=== PATIENT | male | born 1970 | race Caucasian/White ===

== ENCOUNTER → 2016-07-01 | Outpatient (CLI) | payer OTHER ==
--- NOTE | 2016-07-02 08:09 | PAP/PSG TECHNICIAN REPORT ---
[facility] Build And Release Manager Polysomnogram Report Study name: None Report date: 07/02/2016 Study date: 07/01/2016 Referring Physician: KANU BAZAN Name: MALINA LAWSON Interpreting Physician: Bernardo Richardson D.O. Date of : 1970 Build And Release Manager: Klarissa Lucas, PSGT. Sex: Male Age: 46 StudyType: PSG Weight: 160 lbs Height: 46 years, Height 6' 2" Neck Circum:15.5 inches BMI: 20.54 Medications: IBP 400 mg, Loratadine 10 mg, Multivitamin. Patient History 46 yr. old male presents tonight for witnessed apnea and severe snoring. Neck =15.5 inches Parameters Monitored NPSG: E1-M2, E2-M1, Fp1-M2, Fp2-M1, F3-M2, F4-M2, F4-M1, C3-M2, C4-M2, C4-M1, O1-M2, O2-M2, O2-M1, T3-M2, T4-M1, P3-M2, P4-M1, CHIN1, CHIN2, HR, EKG, Legs, PFLOW, SNOR, FLOW, CFLOW, Tidal Volume, THOR, ABDO, SpO2, PLTH, CPRESS, ETCO2 Wave, ETCO2, pH Sleep Architecture Sleep Stages Time at Lights Off 9:53:29 PM STAGES Time (min.) TST (%) Time at Lights On 5:39:29 AM Wake 85.5 -- Total Recording Time (TRT) 471.50 min. N1 49.0 13 Total Sleep Period (TSP) 426.5 min. N2 258.0 68 Total Sleep Time (TST) 380.5min. N3 26.5 7 Awake Time 86.0 min. REM 47.0 12 Wake after Sleep Onset 46.0 min. Sleep Efficiency (SE) 82 % Sleep Onset Latency (KELLY) 39.5 min. Number of Stage 1 Shifts None Awakenings 6 Stage Changes 34 Number of REM periods 2 REM 47.0 12 REM Latency 181.0 min. NREM 333.5 88 Body Position Analysis Supine Right Left Side Prone Vertical Total Sleep Time (min.) 454.3 0.0 0.0 0.00 0.0 11.7 Total Sleep Time (%) 100% 0% 0% 0 0% N/A% Total Sleep Time REM (min.) 47.0 0.0 0.0 None 0.0 0.0 Total Sleep Time NREM (min.) 333.5 0.0 0.0 None 0.0 0.0 Intermittent Wake (min.) 73.8 0.0 0.0 None 0.0 11.7 Total Sleep Period (%) 100% None None None None None Arousals Myoclonus (PLM) * Events Count Index Events Count Index Spontaneous 118 19 Events Awake (PLMW) 2 1.4 Respiratory 8 1.3 Events Asleep w/ Arousal (PLMA) 20 3.2 PLM 20 3 Events Asleep w/o Arousal (PLMS) 186 29.3 Snoring 11 2 Total Asleep 206 32.5 Total 157 25 Total 208 27 Respiratory Analysis * CA OA MA CH H RERA Total Count 0 0 0 0 40 0 40 Index 0.0 0.0 0.0 0 6.3 0 6.3 Mean Duration 0.0 0.0 0.0 0.00 30.8 0.0 30.8 Longest Duration 0.0 0.0 0.0 0.00 0.0 0.0 54.6 Respiratory Event Summary Total Supine ~Supine Right Left Prone REM NREM Apneas Count 0 0 N/A N/A N/A N/A 0 0 Index 0.0 0 N/A N/A N/A N/A 0 0 Hypopneas (4% Desat) Count 40 40 N/A N/A N/A N/A 5 35 Index 6.3 6.3 N/A N/A N/A N/A 6.4 6.3 Apneas & All Hypopneas Count 40 40 N/A N/A N/A N/A 5 35 Index 6.3 6 N/A N/A N/A N/A 6.4 6.3 Respiratory Events (Police Chief Deputy+All Hyp+RERA) Count 40 40 N/A N/A N/A N/A 5 35 Index 6.3 6 N/A N/A N/A N/A 6.4 6.3 Respiratory Related Arousal Count 8 40 N/A N/A N/A N/A 1 7 Index 1.3 1 N/A N/A N/A N/A 1 1 Snoring Analysis Supine Right Left Prone REM NREM Total Snore duration 12.1 min Snores count 332 N/A N/A N/A 49 283 332 Snore mean duration 2.2 Sec Snores index 52 N/A N/A N/A 62.6 50.9 52.4 TST with snoring (%) 3.2% Desaturation Event Summary: Minimum %SpO2 Event Count Mean/Min/Max Duration(sec.) Desaturation Index % Time In Bed > 90 43 33.6 / 9.0 / 58.8 5.6 98.4 86 - 90 0 N/A 0.0 1.6 81 - 85 0 N/A 0.0 0.0 76 - 80 0 N/A 0.0 0.0 71 - 75 0 N/A 0.0 0.0 66 - 70 0 N/A 0.0 0.0 61 - 65 0 N/A 0.0 0.0 56 - 60 0 N/A 0.0 0.0 51 - 55 0 N/A 0.0 0.0 < 50 0 N/A 0.0 0.0 Total REM NREM Awake <50% 0.0 min. 0.0 min. 0.0 min. 0.0 min. 51 - 60% 0.0 min. 0.0 min. 0.0 min. 0.0 min. 61 - 70% 0.0 min. 0.0 min. 0.0 min. 0.0 min. 71 - 80% 0.0 min. 0.0 min. 0.0 min. 0.0 min. 81 - 90% 7.5 min. 1.0 min. 5.7 min. 0.8 min. 91 - 100% 458.4 min. 46.0 min. 327.8 min. 84.6 min. Average 93 93 93 93 Minimum SpO2 87 90 87 88 Desaturation Event Index 5.5 6.4 6.8 0.0 # Desat. Events below 89% 4 N/A 4 N/A Time(%) with Saturation below 89% 0.2 0.0 0.1 0.0 Time(min.) with Saturation below 89% 0.8 0.0 0.7 0.1 Time (mins) REM (mins) NREM (mins) % of TST SpO2 Below 90% 18 2 N16 0.5 SpO2 Below 88% 3 0 0 0 Heart Rate Analysis Min (bpm) Max (bpm) Average (bpm) Awake 52 76 62 NREM 47 73 55 REM 50 73 60 Overall 47 73 55 Supplemental O2 Values Minimum O2 level: None Value Start Time End Time Build And Release Manager Comments PSG Study Mr. Lawson slept in the supine positions. No cardiac arrhythmia, PLM's noted. No bruxism noted. Snoring was noted and scored as a 2 on a scale of 1 through 5. (0=no snoring, 5=snoring loud enough to be heard through a closed door or down the [address] way) Mr. Lawson awoke to use the restroom zero times during the night. Mr. Lawson stated, I did sleep better than I do when I am in my own bed. The final report will be interpreted and signed by a sleep physician. The completed physician report will then be placed in the patient medical record. Pt. had a lot of myoclonus in the beginning, then as the night progressed he seemed to stop. He would move his legs head and mouth. Snoring was mild and he stayed the in the supine position the entire study. Therapy (cm H2O) 0 TIB (min.) 466.0 TST (min.) 380.5 Sleep Onset (min.) 39.5 REM Onset From Sleep (min.) 181.0 Sleep Efficiency % 82 Wakefulness (%) 18 Wakefulness (min.) 86.0 NREM 1 (%) 13 NREM 1 (min.) 49.0 NREM 2 (%) 68 NREM 2 (min.) 258.0 NREM 3 (%) 7 NREM 3 (min.) 26.5 REM (%) 12 REM (min.) 47.0 # Arousals 157 Arousal Index 25 # Snore 332 Snore Index 52.4 AHI 6.3 AHI Supine 6 AHI Non-Supine N/A NREM AHI 6.3 REM AHI 6.4 RDI 6.3 # Obstructive Apnea 0 # Central Apnea 0 # Mixed Apnea 0 # Hypopneas 40 RERAs 0 Total Respiratory Events 40 Time Below SpO2 89% (min.) 0.7 Mean NREM SpO2 (%) 93 Mean REM SpO2 (%) 93 Mean Sleep SpO2 (%) 93 Min NREM SpO2 (%) 87 Min REM SpO2 (%) 90 Position Supine (min.) 454.3 Position Non-supine (min.) 0.0 LM Index Sleep 32.5 LM Index NREM 32.4 LM Index REM 33.2 Mean Heart Rate (bpm) 55 Min Heart Rate (bpm) 47
--- NOTE | 2016-07-05 19:59 | POLYSOMNOGRAPH REPORT ---
REFERRING PHYSICIAN: BENI Torrez CLINICAL DATA: The patient is a 46-year-old male with a BMI of 20.54. His history is that of snoring, restless sleep, nocturnal gasping, and observed apneas. SLEEP ARCHITECTURE: The total sleep period was 426.5 minutes. The total sleep time was 380.5 minutes. The sleep efficiency was mildly reduced at 82%. Sleep onset latency was 39.5 minutes. Wake after sleep onset was 46.0 minutes. The REM latency was prolonged to 181 minutes. Sleep consisted of stage NI 13%, stage N2 68%, stage N3 7%, and stage REM 12%. AROUSAL DATA: The patient had a total of 157 arousals including 118 spontaneous arousals, 8 respiratory arousals, 20 PLM arousals, and 11 snoring arousals. The arousal index was 25. PERIODIC LIMB MOVEMENTS DATA: The patient had a total of 206 periodic limb movements of sleep for an index of 32.5. There were 20 arousals for a PLM arousal index of 3.2. ELECTROCARDIOGRAM: The patient's underlying cardiac rhythm was normal sinus. The cardiac rates ranged from 47-73 beats per minute, the average was 60 per minute. No cardiac arrhythmia was noted. RESPIRATORY DATA: The patient had a total of 40 respiratory events all of which were hypopneas. Hypopneas were scored by the 4% desaturation rolls. The apnea hypopnea index was 6.3. There were 0 apneas. The mean duration of the hypopneas was 30.8 seconds. OXIMETRY DATA: The average saturation was 93%. The minimum saturation was 87%. He had a total of only 0.8 minutes with saturations less than 89%. SUPERVISOR ENGINE REPAIR'S COMMENTS: The patient slept in the supine position. No cardiac arrhythmias noted. PLMs were noted. No bruxism noted. Snoring was noted and scored as a 2 on a scale of 1 through 5. Following the study, patient stated that he did sleep better than he does in his own bed. IMPRESSION: 1. Obstructive sleep apnea - mild. 2. Periodic limb movement disorder. COMMENTS: The patient had mild sleep apnea. All of his events were hypopneas. There was a marked increase in spontaneous arousals, this may represent some degree of underlying upper airway resistance. He was noted to be supine throughout the entire night. He had a moderate number of limb movements but with relatively few arousals. RECOMMENDATIONS: 1. Consideration is given to a trial of nasal CPAP. In light of the mild sleep apnea, this is dependent upon his clinical scenario and patient's wishes. He could be referred for a CPAP titration or he could be treated with auto CPAP. 2. An alternative treatment would be an oral appliance. 3. The patient would be advised to avoid sleeping in the supine position as typically there is more sleep disordered breathing when lying supine. MTDD
== END | disposition home or self-care (01) ==
LOC: C.NEUR 20:00 → MERGE 20:00
PROVIDERS: ATTEND Nurse Practitioner Adult Health
DX: R06.83 Snoring (principal); R06.9 Unspecified abnormalities of breathing; G47.9 Sleep disorder, unspecified

== ENCOUNTER 2017-01-28 22:07 | Emergency (ER) | payer OTHER ==
[~2017-01-28] VITALS: Ht 188 cm; Wt 68.0 kg
[2017-01-28 22:35] VITALS: TEMP 36.7; Ht 188 cm; Wt 68.0 kg
[2017-01-28 22:53] LABS: URINE APPEARANCE CLEAR (CLEAR); URINE BILIRUBIN NEG (NEG); URINE COLOR YELLOW; URINE NITRITE NEG (NEG); URINE SPECIFIC GRAVITY 1.024 (1.000-1.030); UROBILINOGEN NEG (NEG)
[2017-01-28 22:56] LABS: MANUAL MICROSCOPIC REQUIRED? NO; REVIEW REQ? NO
[2017-01-28 23:08] LABS: BASO % 0.7 %; BASO ABS # 0.05 K/uL (0-0.2); COMPLETE YES; EOS % 1.9 %; HEMATOCRIT 44.5 % (42-52); IG% 0.3 %; LYMPH % 21.4 %; LYMPH ABS # 1.46 K/uL (1.2-3.4); MEAN CELL VOLUME 89.2 fL (80-100); MEAN CORPUSCULAR HEMOGLOBIN 30.1 pg (25-34); MEAN CORPUSCULAR HGB CONC 33.7 g/dl (32-36); MEAN PLATELET VOLUME 10.4 fL (7.4-10.4); MONO % 9.3 %; NEUT % 66.4 %; PLATELET COUNT 305 K/uL (130-400); RED BLOOD COUNT 4.99 M/uL (4.7-6.1); WHITE BLOOD COUNT 6.81 K/uL (4.8-10.8)
--- NOTE | 2017-01-28 23:08 | EMERGENCY ROOM VISIT NOTE ---
History Report prepared by Rosalio: Claudia Mckeon Under the Supervision of: Dr. Marco A Calloway M.D. First contact with patient: 22:13 Stated Complaint: MH History of Present Illness The patient is a 46 year old male who presents to the Emergency Room for a mental health evaluation. The patient's called the police after he sent a text message today saying that his kids will no longer have a father. She was concerned that he might try to hurt himself. His also notes that he has had worsening poor hygiene in the past month. The patient has a history of anxiety and depression. He is not on any medications, but does follow with a therapist. He finds speaking with a therapist helpful. The patient states that he does not have any suicidal or homicidal ideation. He explains that he made that statement after his told him that she would sell his truck if he did not refinance by tomorrow. He meant that he would be unable to drive to see his kids without his truck. Source of History: patient, nursing staff Onset: earlier today Position: other (global) Quality: other (mental health evaluation) Timing: resolved Note: Pt denies suicidal ideation, homicidal ideation. Review of Systems See HPI for pertinent positives & negatives. A total of 10 systems reviewed and were otherwise negative. Past Medical & Surgical Medical Problems: (1) Anxiety (2) Depression Family History No pertinent family history stated. Social History Marital Status: Occupation Status: employed Current/Historical Medications No Active Prescriptions or Reported Meds Allergies Coded Allergies: No Known Allergies (Unverified , 01/28/17) Physical Exam Vital Signs Date Time Temp Pulse Resp B/P (MAP) Pulse Ox O2 Delivery O2 Flow Rate FiO2 01/28/17 22:35 36.7 66 20 149/101 95 Room Air Physical Exam GENERAL: Patient is a healthy-appearing well-nourished male HEAD: Normocephalic atraumatic EYES: Ocular movements intact pupils equal and react to light OROPHARYNX mucous membranes are moist no exudates present no erythema or edema present NECK: Supple no nuchal rigidity CHEST: Good equal expansion LUNGS: Clear and equal to auscultation CARDIAC: Normal S1 and S2 ABDOMEN: Soft nontender no guarding BACK: No CVA tenderness EXTREMITIES: No pain upon palpation normal muscle strength in all groups no clubbing cyanosis or edema NEURO: Patient is following commands and answering questions appropriately. Alert and oriented x3 Cranial Nerves 2-12 grossly intact PSYCH: Pressured speech, but denies being suicidal or homicidal Medical Decision & Procedures Laboratory Results 01/28/17 22:54 Red Blood Count 4.99, Mean Corpuscular Volume 89.2, Mean Corpuscular Hemoglobin 30.1, Mean Corpuscular Hemoglobin Concent 33.7, Mean Platelet Volume 10.4, Neutrophils (%) (Auto) 66.4, Lymphocytes (%) (Auto) 21.4, Monocytes (%) (Auto) 9.3, Eosinophils (%) (Auto) 1.9, Basophils (%) (Auto) 0.7, Neutrophils # (Auto) 4.52, Lymphocytes # (Auto) 1.46, Monocytes # (Auto) 0.63, Eosinophils # (Auto) 0.13, Basophils # (Auto) 0.05 01/28/17 22:54 Test 01/28/17 22:40 01/28/17 22:54 Urine Color YELLOW Urine Appearance CLEAR (CLEAR) Urine pH 5.0 (4.5-7.5) Urine Specific [place] 1.024 (1.000-1.030) Urine Protein NEG (NEG) Urine Glucose (UA) NEG (NEG) Urine Ketones TRACE (NEG) Urine Occult Blood NEG (NEG) Urine Nitrite NEG (NEG) Urine Bilirubin NEG (NEG) Urine Urobilinogen NEG (NEG) Urine Leukocyte Esterase NEG (NEG) Urine Opiates Screen NEG (NEG) Urine Methadone, Qualitative NEG (NEG) Urine Barbiturates NEG (NEG) Urine Phencyclidine (PCP) Level NEG (NEG) Ur Amphetamine/Methamphetamine NEG (NEG) MDMA (Ecstasy) Screen NEG (NEG) Urine Benzodiazepines Screen NEG (NEG) Urine Cocaine Metabolite NEG (NEG) Urine Marijuana (THC) NEG (NEG) White Blood Count 6.81 K/uL (4.8-10.8) Red Blood Count 4.99 M/uL (4.7-6.1) Hemoglobin 15.0 g/dL (14.0-18.0) Hematocrit 44.5 % (42-52) Mean Corpuscular Volume 89.2 fL (80-100) Mean Corpuscular Hemoglobin 30.1 pg (25-34) Mean Corpuscular Hemoglobin Concent 33.7 g/dl (32-36) Platelet Count 305 K/uL (130-400) Mean Platelet Volume 10.4 fL (7.4-10.4) Neutrophils (%) (Auto) 66.4 % Lymphocytes (%) (Auto) 21.4 % Monocytes (%) (Auto) 9.3 % Eosinophils (%) (Auto) 1.9 % Basophils (%) (Auto) 0.7 % Neutrophils # (Auto) 4.52 K/uL (1.4-6.5) Lymphocytes # (Auto) 1.46 K/uL (1.2-3.4) Monocytes # (Auto) 0.63 K/uL (0.11-0.59) Eosinophils # (Auto) 0.13 K/uL (0-0.5) Basophils # (Auto) 0.05 K/uL (0-0.2) RDW Standard Deviation 42.3 fL (36.4-46.3) RDW Coefficient of Variation 13.0 % (11.5-14.5) Immature Granulocyte % (Auto) 0.3 % Immature Granulocyte # (Auto) 0.02 K/uL (0.00-0.02) Anion Gap 7.0 mmol/L (3-11) Est Creatinine Clear Calc Drug Dose 120.0 ml/min Estimated GFR () 128.2 Estimated GFR (Non- 110.6 BUN/Creatinine Ratio 23.1 (10-20) Calcium Level 8.6 mg/dl (8.5-10.1) Total Bilirubin 0.4 mg/dl (0.2-1) Direct Bilirubin < 0.1 mg/dl (0-0.2) Aspartate Amino Transf (AST/SGOT) 24 U/L (15-37) Alanine Aminotransferase (ALT/SGPT) 29 U/L (12-78) Alkaline Phosphatase 52 U/L (45-117) Total Protein 6.6 gm/dl (6.4-8.2) Albumin 4.0 gm/dl (3.4-5.0) Thyroid Stimulating Hormone (TSH) 3.250 uIu/ml (0.300-4.500) Ethyl Alcohol mg/dL < 3.0 mg/dl (0-3) Labs reviewed by ED physician. ED Course 2216: Past medical records reviewed. The patient was evaluated in room A6. A complete history and physical examination was performed. Medical Decision Differential diagnosis: Etiologies such as mood disorder, infection, hypoglycemia, electrolyte abnormalities, cardiac sources, intracerebral event, toxicologic, neurologic, as well as others were entertained. This is a 46-year-old male who presents emergency department complaining of mood disorder. The patient appears to been enough flight with his however he denies being suicidal or homicidal here in the emergency department and in addition the police officers that brought him to not feel that the patient was suicidal or homicidal. The patient does appear anxious however with a lengthy conversation about his issues. We did discuss the case with the patient's sister and she felt the patient was well enough to be discharged home. We stressed the need to return to the emergency department if the patient symptoms worsen. He again denies being suicidal or homicidal. He is going to follow-up with his therapist at the [place]. Medication Reconcilliation Current Medication List: was personally reviewed by me Blood Pressure Screening Patient's blood pressure: Elevated blood pressure Blood pressure disposition: Referred to PCP Impression Primary Impression: Mood disorder Scribe Attestation The scribe's documentation has been prepared under my direction and personally reviewed by me in its entirety. I confirm that the note above accurately reflects all work, treatment, procedures, and medical decision making performed by me. Departure Information Dispostion Home / Self-Care Prescriptions No Active Prescriptions or Reported Meds Referrals No Doctor, Assigned (PCP)
[2017-01-28 23:13] LABS: BENZODIAZEPINE, URINE NEG (NEG); COCAINE,URINE NEG (NEG); PHENCYCLIDINE, URINE NEG (NEG)
[2017-01-28 23:27] LABS: ALT/SGPT 29 U/L (12-78); BLOOD UREA NITROGEN 17 mg/dl (7-18); BUN/CREATININE RATIO 23.1 (10-20); CALCIUM 8.6 mg/dl (8.5-10.1); CARBON DIOXIDE 25 mmol/L (21-32); CHLORIDE 108 mmol/L (98-107); CREATININE 0.74 mg/dl (0.60-1.40); GLUCOSE 97 mg/dl (70-99); POTASSIUM 3.5 mmol/L (3.5-5.1); SODIUM 139 mmol/L (136-145)
[2017-01-28 23:38] LABS: ALKALINE PHOSPHATASE 52 U/L (45-117); AST/SGOT 24 U/L (15-37)
[2017-01-29 01:23] VITALS: BP 140/90; PULSE 70; O2SAT 96
== END 2017-01-29 01:23 | disposition home or self-care (01) ==
LOC: EDSEX 22:07 → EDBD 22:07 → C.EDA 22:08
DX: F41.8 Other specified anxiety disorders (principal); R03.0 Elevated blood-pressure reading, without diagnosis of hypertension